=== PATIENT | male | born 1960 | race Caucasian/White ===

== ENCOUNTER → 2021-04-16 | Outpatient (CLI) | payer BC ==
[~2021-04-16] MED LIST: E-Z-GAS II EFFERVESCENT PACKET (SODIUM BICARB./CITRIC ACID/SIMETHICONE) As Ordered ONE; E-Z-HD 98% w/w 340GM SUSP BTL As Ordered ONE; E-Z-PAQUE 96% w/w SUSP 176GM BTL As Ordered ONE
--- NOTE | 2021-04-16 14:59 | REP ---
INDICATION: DYSPHAGIA, UPPER ABD PAIN. COMPARISON: None TECHNIQUE: This procedure was performed by Erin Olsen [facility], under the direct supervision of Dr. West. Images were reviewed with Dr. West prior to dictation. Liquid barium and gas producing crystals were given in the erect position, as well as liquid barium in the prone oblique position in order to perform a double contrast upper GI examination. FINDINGS: The clothing worker film shows no organomegaly or pathological masses. The intestinal gas pattern is unremarkable. The oral and pharyngeal stages of deglutition were unremarkable. A cricopharyngeal bar is visualized. There is an anterior osteophyte off of C6-C7 indenting the posterior aspect of the esophagus. Esophageal transport is prompt and efficient and there is no evidence of esophagitis, stricture, or mucosal ring. There is no evidence of a hiatal hernia. There was no gastroesophageal reflux noted . The stomach berman are normally outlined. The rugal folds are smooth and regular. There is no gastritis, neoplasm, or ulcerative disease. The duodenal berman are normally outlined. The mucosal folds are smooth and regular. There is no duodenitis, peptic ulcer disease or neoplasm. The visualized portion of the proximal small bowel appears normal in course and caliber. IMPRESSION: Unremarkable upper GI examination. 0.5 minutes of fluoroscopy time was utilized for this procedure. Some fluoroscopic images are performed with last image hold technology. These images require no additional radiation. <Electronically signed by Erin Olsen > 04/16/21 1220 <Electronically signed by Kaveh West > 04/16/21 [id number]
== END ==
LOC: M RAD 08:28
PROVIDERS: ATTEND Physician Assistant Medical
DX: R13.10 Dysphagia, unspecified (principal); R10.10 Upper abdominal pain, unspecified

== ENCOUNTER → 2021-05-20 | Outpatient (CLI) | payer BC ==
[~2021-05-20] MED LIST changes: +CETI-36 PO; -E-Z-GAS II EFFERVESCENT PACKET (SODIUM BICARB./CITRIC ACID/SIMETHICONE) As Ordered ONE; -E-Z-HD 98% w/w 340GM SUSP BTL As Ordered ONE; -E-Z-PAQUE 96% w/w SUSP 176GM BTL As Ordered ONE; +PRIL20TA2 PO
== END ==
LOC: M LABSMTC 08:51
PROVIDERS: ATTEND Anesthesiology
DX: Z01.812 Encounter for preprocedural laboratory examination (principal)

== ENCOUNTER 2021-05-25 11:29 | Day surgery (SDC) | payer BC ==
[~2021-05-25] VITALS: Ht 177.8 cm; Wt 84.8 kg
[~2021-05-25 11:29] MED LIST changes: +NS 1,000 ML IV ONE
[2021-05-25] MEDS ORDERED: propofoL 200 MG/20 ML VIAL As Ordered ONE (13:18)
[2021-05-25] MEDS ORDERED: LIDOCAINE 2% 100MG/5ML SDV (FOR ANES.) As Ordered ONE (13:18)
[2021-05-25] MEDS ORDERED: fentaNYL 100 MCG/2 ML INJECTION (J3010) As Ordered ONE (13:19)
--- NOTE | 2021-05-25 13:41 | ROOR ---
Patient Name: Fred Arevalo Procedure Date: 05/25/2021 1:17 PM Date of : 1960 Age: 60 Room: [facility] Gender: Male Note Status: Finalized Procedure: Upper GI endoscopy Indications: Dyspepsia, Abnormal UGI series, Dysphagia Providers: Brayan Taylor MD Referring MD: Remi Pratt DO Requesting Provider: Medicines: Monitored Anesthesia Care Complications: No immediate complications. Procedure: Pre-Anesthesia Assessment: - The heart rate, respiratory rate, oxygen saturations, blood pressure, adequacy of pulmonary ventilation, and response to care were monitored throughout the procedure. The Endoscope was introduced through the mouth, and advanced to the second part of duodenum. The upper GI endoscopy was accomplished without difficulty. The patient tolerated the procedure well. Findings: Two tongues of salmon-colored mucosa were present from 37 to 39 cm. No other visible abnormalities were present. The maximum longitudinal extent of these esophageal mucosal changes was 2 cm in length. Biopsies were taken with a cold forceps for histology. A small area of extrinsic compression was found at the cricopharyngeus. The scope was withdrawn. Dilation was performed with a Mckeon dilator with no resistance at 54 Fr. The dilation site was examined and showed no change. Evidence of a fundoplication was found in the cardia. The wrap appeared intact. The entire examined stomach was normal. The examined duodenum was normal. 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 Biopsied. - Minimal extrinsic compression at the cricopharyngeus. Dilated. - A fundoplication was found. The wrap appears intact. - Otherwise normal stomach. - Normal examined duodenum. Recommendation: - Observe patient's clinical course. - Follow an antireflux regimen. - Repeat upper endoscopy in 3 years. Procedure Code(s): --- Professional --- 43962, Esophagogastroduodenoscopy, flexible, transoral; with biopsy, single or multiple 94716, Dilation of esophagus, by unguided sound or bougie, single or multiple passes Diagnosis Code(s): --- Professional --- K22.8, Other specified diseases of esophagus K22.2, Esophageal obstruction Z98.890, Other specified postprocedural states R10.13, Epigastric pain R13.10, Dysphagia, unspecified R93.3, Abnormal findings on diagnostic imaging of other parts of digestive tract CPT copyright 2019 [employer]. All rights reserved. The codes documented in this report are preliminary and upon wool grower review may be revised to meet current compliance requirements. Brayan Taylor MD Brayan Taylor MD 05/25/2021 1:40:41 PM Electronically signed by Brayan Taylor MD Number of Addenda: 0 Note Initiated On: 05/25/2021 1:17 PM Estimated Blood Loss: Estimated blood loss: none.
[2021-05-25 14:00] VITALS: BP 124/84
== END 2021-05-25 14:12 | disposition home or self-care (01) ==
LOC: M OPP 11:29
PROVIDERS: ATTEND Internal Medicine Gastroenterology
DX: K22.8 Other specified diseases of esophagus (principal); K22.2 Esophageal obstruction; Z98.890 Other specified postprocedural states; R10.13 Epigastric pain; R13.10 Dysphagia, unspecified; R93.3 Abnormal findings on diagnostic imaging of other parts of digestive tract; K21.9 Gastro-esophageal reflux disease without esophagitis; Z80.0 Family history of malignant neoplasm of digestive organs
CPT/HCPCS: 43239; 43450; 88305; J3010